=== PATIENT | male | born 1970 | race Caucasian/White ===

== ENCOUNTER 2020-04-15 16:04 | Emergency (ER) | payer OTHER, SELFPAY ==
[2020-04-15 16:11] VITALS: BP 150/82; PULSE 77; RESP 20; TEMP 37.1; O2SAT 99
--- NOTE | 2020-04-15 16:14 | ED.DENTAL ---
HPI - Dental/Oral General Chief complaint: Dental/Oral Stated complaint: facial swelling Source: patient and RN notes reviewed Limitations: no limitations History of Present Illness HPI Narrative: The patient, a non-smoker/nondrinker w/ immunizations UTD, presents with a 3-day history of right jaw pain and swelling. Patient states he has right parotid and angle of jaw discomfort that is mild, worse with palpation, better at rest. No fever, hoarseness, trismus, toothache [has had a few cavities and crowns], bruxism, neuralgic/lancing pain, URI, sinus/mastoid discomfort; no loss of taste/smell, CP, cough, S OB. Discussed possible causes [dental, adenitis, acquired?TMJ, infectious etc] and will treat broadly and advised to follow-up with ENT if not improved Related Data Allergies Allergy/AdvReac Type Severity Reaction Status Date / Time No Known Allergies Allergy Verified 04/15/20 16:15 Review of Systems Review of Systems: Narrative: The patient has been informed that they may have pre-hypertension or Hypertension based on a BP reading in the department. I recommend that the patient call the primary care provider listed on their discharge instructions or a physician of their choice this week to arrange follow up for further evaluation of possible pre-hypertension or Hypertension General/Constitutional: No weight loss,fever Eyes: N0: Redness,discharge Ears/Nose/Throat: No: Epistaxis,ear discharge Respiratory: Denies: Hemoptysis Gastrointestinal: No Vomiting, Bleeding-rectal Skin: No Lumps, eruption Neurologic: No Focal Weakness,Sz Hematologic: Denies: Petechiae/Purpura Psychiatric: No: Suicida ideationl All Other Systems: Reviewed and Negative PMFSH Family History Family History (Updated 11/25/15 @ 23:21 by DOCTOR UNKNOWN) Father Family history of rheumatoid arthritis Patient's father is in good health Mother Patient's mother is in good health Sibling Patient's sister is in good health Patient's brother is in good health Social History Social History Smoking status: Never smoker Alcohol intake: never Comments At time of signature, agree with nursing past medical, surgical, social and family history. There is no relevant family history pertinent to the presenting complaint Exam Narrative: Exam Narrative: General Appearance: Well nourished/ Obese, Conjunctiva clear Ears: External ear normal, Auditory canal normal Nose: Normal nose Mouth/Throat: Normal appearing with mild right parotid jaw swelling, Normal lips, MM moist, Uvula midline ,scattered dental caries and fillings, no d/c from gland opening Neck: Supple, No adenopathy Respiratory: Airway patent, No respiratory distress, Musculoskeletal: Full ROM, Non tender, Normal strength Skin: Warm, Dry, Normal color Neurological: Speech clear, CN II-XII intact, Normal affect Course Vital Signs Vital signs: Vital Signs Temperature 98.7 F 04/15/20 16:11 Pulse Rate 77 04/15/20 16:11 Respiratory Rate 20 04/15/20 16:11 Blood Pressure 150/82 H 04/15/20 16:11 Pulse Oximetry 99 04/15/20 16:11 Temperature 98.7 F 04/15/20 16:11 Pulse Rate 77 04/15/20 16:11 Respiratory Rate 20 04/15/20 16:11 Blood Pressure 150/82 H 04/15/20 16:11 Pulse Oximetry 99 04/15/20 16:11 Discharge Plan Discharge Clinical Impression: Acute parotitis Patient Disposition: Home, Self-Care Condition: Stable Instructions: Antibiotic Form, Sialoadenitis (ED) Additional Instructions: See ENT in follow-up Prescriptions: New tramadol 50 mg tablet 50 mg PO Q6H PRN (Reason: pain) Qty: 15 RF: 1 amoxicillin-pot clavulanate [Augmentin] 500-125 mg tablet 1 tablet PO Q12H Qty: 14 RF: 0 Follow-up/Referrals: Spencer,Deondre Mendez MD [Primary Care Provider] - Stand Alone Forms: Work/School Release IP
== END 2020-04-15 16:37 | disposition home or self-care (01) ==
PROVIDERS: Emergency Provider Emergency Medicine; PCP Internal Medicine
DX: K11.21 Acute sialoadenitis (principal)
CPT/HCPCS: 99213; G0463